=== PATIENT | female | born 1930 | race Caucasian/White ===

== ENCOUNTER 2016-08-29 10:47 | Inpatient (IN) | payer BC ==
[~2016-08-29] VITALS: Ht 162.6 cm; Wt 62.7 kg
[2016-08-29 10:48] VITALS: BP 154/87; PULSE 58; RESP 18; TEMP 97.3; O2SAT 99
--- NOTE | 2016-08-29 10:50 | NUR ---
Pt bib BLS placed in room 1 for eval of left hip swelling s/p "Leg gave out" and fall to floor. MD Peña at bedside.
--- NOTE | 2016-08-29 11:10 | NUR ---
Pt off the unit for CT
[2016-08-29] MEDS ORDERED: ONDANSETRON HCL 4 MG/2 ML VIAL IVP ONE (11:15)
[2016-08-29] MEDS ORDERED: MORPHINE 4 MG/ML INJ. SYRINGE IVP ONE (11:15)
[2016-08-29] MEDS ORDERED: ASPIRIN 81 MG TAB.CHEW PO ONE (11:15)
[2016-08-29 12:01] LABS: BASOPHILS # (AUTO) 0.1 K/uL (0.0-0.2); BASOPHILS % (AUTO) 0.6 % (0.0-2.0); EOSINOPHILS % (AUTO) 0.2 % (0.0-4.0); HEMATOCRIT 41.1 % (36-48); HEMOGLOBIN 14.1 g/dL (12.0-16.0); LYMPHOCYTES # (AUTO) 1.1 K/uL (1.0-5.5); LYMPHOCYTES % (AUTO) 7.7 % (20.5-51.5); MEAN CORPUSCULAR HEMOGLOBIN 35 pg (27-31); MEAN CORPUSCULAR HGB CONC 34 % (32-36); MEAN CORPUSCULAR VOLUME 100 fL (79.0-98.0); MONOCYTES # (AUTO) 1.3 K/uL (0.0-1.0); MONOCYTES % (AUTO) 9.3 % (1.7-9.3); NEUTROPHILS # (AUTO) 11.8 K/uL (1.8-7.7); NEUTROPHILS % (AUTO) 82.2 % (40.0-70.0); PLATELET COUNT (AUTO) 153 K/uL (130-430); RED CELL DISTRIBUTION WIDTH 12.3 % (9.0-15.0); WHITE BLOOD COUNT (AUTO) 14.3 K/uL (4.8-10.8)
[2016-08-29 12:09] LABS: ANION GAP 3 (5-15); CALCIUM 9.2 mg/dL (8.4-11.0); CHLORIDE 103 mmol/L (98-107); CREATININE 1.27 mg/dL (0.55-1.30); GLUCOSE 124 mg/dL (70-99); POTASSIUM 4.3 mmol/L (3.5-5.1); SODIUM SERUM 139 mmol/L (136-145); UREA NITROGEN, BLOOD 33 mg/dL (8-21)
[2016-08-29 12:12] LABS: INR 1.1 (0.8-1.2); PROTHROMBIN TIME 11.9 SECS (9.5-12.5)
[2016-08-29 12:13] LABS: ALANINE AMINOTRANSFERASE 26 U/L (12-78); ASPARTATE AMINOTRANSFERASE 32 U/L (10-37); CREATINE KINASE, TOTAL 242 U/L (26-192); PHOSPHORUS 3.5 mg/dL (2.7-4.5); TOTAL BILIRUBIN 1.1 mg/dL (0.0-1.0); TOTAL PROTEIN, SERUM 7.2 g/dL (6.4-8.3)
[2016-08-29 12:43] LABS: CKMB RELATIVE INDEX 5.3 (0.0-2.9); CREATINE KINASE MB 12.8 ng/mL (0-3.6)
--- NOTE | 2016-08-29 13:44 | NUR ---
ORTHO DR DICK ACCEPTED THE [facility] PATIENT.
--- NOTE | 2016-08-29 14:16 | NUR ---
ADMIT NOTE Received pt from ER to the floor with a diagnosis of hip fracture. Admission process initiated. patient oriented to pain management, safety and call light-teach back done.
--- NOTE | 2016-08-29 14:20 | NUR ---
Patient will be admitted to care of . Admitted to Telemetry unit. Will go to room 104B. Summary report printed. Report given to Admission RN.
[2016-08-29 14:39] VITALS: BP 135/65; PULSE 81; RESP 20; TEMP 98.6; O2SAT 96
[2016-08-29] MEDS ORDERED: DIGO125T79 PO (15:37)
[2016-08-29] MEDS ORDERED: POTA8TAB4 PO (15:37)
[2016-08-29] MEDS ORDERED: FURO-150 PO (15:37)
[2016-08-29] MEDS: MORPHINE 2 MG/ML INJ. SYRINGE IVP PRN ×3 (15:38→23:58)
[2016-08-29] MEDS: 0.45% NACL 1,000 ML IV SCH (15:40)
--- NOTE | 2016-08-29 16:07 | NUR ---
Cardio Consult: for Dr. Snow, regarding preop clearance, ordered by Dr. Villavicencio, spoke with Rosie.
--- NOTE | 2016-08-29 16:16 | NUR ---
Page request per shipping and receiving clerk for Doctor Joyce for time of surgery evaluation. 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
--- NOTE | 2016-08-29 16:35 | NUR ---
Doctor Maye and nurse rounds to bedside. Son aware he will likely go tonight and not have a consult visit.
--- NOTE | 2016-08-29 16:58 | NUR ---
Ortho Consult: for Dr. Cook will not be taking case.
--- NOTE | 2016-08-29 17:05 | NUR ---
[employer] to call Doctor Maye for new choice of orthopaedic MD as Doctor Joyce no longer taking cases.
--- NOTE | 2016-08-29 17:07 | NUR ---
Paged Dr. Villavicencio to request order for new ortho consult.
--- NOTE | 2016-08-29 17:22 | NUR ---
DOCTOR MEGAN SAYS CONSULT JENNIFER IF NOT AVAILABLE CONSULT DOCTOR WATKINS.
--- NOTE | 2016-08-29 17:36 | NUR ---
Dr. Garcia will not take consult.
--- NOTE | 2016-08-29 17:44 | NUR ---
Dr. Xie not propulsion systems engineer, consult given to Dr. Mcmullen. Spoke with
--- NOTE | 2016-08-29 18:03 | NUR ---
DOCTOR JENNIFER AND DOCTOR WATKINS NOT ABLE TO CONSULT. DOCTOR FIORDALIZA AVAILABLE. CONSULT PLACED.
[2016-08-29 18:18] VITALS: BP 125/76; PULSE 65; RESP 19; TEMP 97.3; O2SAT 95
[2016-08-29 18:25] LABS: CKMB RELATIVE INDEX 3.8 (0.0-2.9); CREATINE KINASE MB 12.7 ng/mL (0-3.6)
--- NOTE | 2016-08-29 18:37 | NUR ---
PATIENT NOTIFIED DOCTOR FIORDALIZA CALLED FOR CONSULTATION RE: EVAL FOR ORTHO SURGERY.
--- NOTE | 2016-08-29 19:45 | NUR ---
Start of shift notes Received pt.in bed, pt.alert, awake, oriented x4. Complained of 7/10 L hip pain, will give pain med. Breathing even and non labored. Call light placed within reach. Made comfortable in bed.
--- NOTE | 2016-08-29 19:45 | NUR ---
Handoff rounds . Assist to bedpan. Patient pending consults with Doctor Mcmullen and Doctor Snow. Encouraged to call or have am nurse call again.
--- NOTE | 2016-08-29 19:55 | NUR ---
Pt.complained of L hip pain, pain med.given. Made comfortable in bed.
[2016-08-29 20:00] VITALS: BP 142/69; PULSE 68; RESP 18; TEMP 98.9; O2SAT 100
--- NOTE | 2016-08-29 23:58 | NUR ---
Nurse rounds Pt.complained of L hip pain, pain med.given.
[2016-08-30 00:03] VITALS: BP 132/62; PULSE 70; RESP 16; TEMP 99.9; O2SAT 96
[2016-08-30 04:00] VITALS: BP 146/65; PULSE 69; RESP 16; TEMP 97.2; O2SAT 94
[2016-08-30] MEDS: MORPHINE 2 MG/ML INJ. SYRINGE IVP PRN ×5 (04:10→21:28)
--- NOTE | 2016-08-30 04:10 | NUR ---
Nurse rounds Pt.complained of pain, pain med.given.
--- NOTE | 2016-08-30 06:00 | NUR ---
End of shift notes Pt.seemed comfortable in bed this time, pain med.given earlier.
[2016-08-30 06:59] LABS: BASOPHILS % (AUTO) 0.5 % (0.0-2.0); EOSINOPHILS # (AUTO) 0.2 K/uL (0.0-0.4); EOSINOPHILS % (AUTO) 2.1 % (0.0-4.0); HEMATOCRIT 35.1 % (36-48); HEMOGLOBIN 12.4 g/dL (12.0-16.0); LYMPHOCYTES # (AUTO) 1.5 K/uL (1.0-5.5); LYMPHOCYTES % (AUTO) 18.9 % (20.5-51.5); MEAN CORPUSCULAR HEMOGLOBIN 35 pg (27-31); MEAN CORPUSCULAR HGB CONC 35 % (32-36); MEAN CORPUSCULAR VOLUME 100 fL (79.0-98.0); MONOCYTES # (AUTO) 1.4 K/uL (0.0-1.0); MONOCYTES % (AUTO) 17.2 % (1.7-9.3); NEUTROPHILS % (AUTO) 61.3 % (40.0-70.0); PLATELET COUNT (AUTO) 135 K/uL (130-430); RED BLOOD CELL COUNT(AUTO) 3.52 MIL/uL (4.2-6.2); RED CELL DISTRIBUTION WIDTH 12.6 % (9.0-15.0); WHITE BLOOD COUNT (AUTO) 8.1 K/uL (4.8-10.8)
[2016-08-30 08:00] VITALS: BP 141/69; PULSE 82; RESP 16; TEMP 98.6; O2SAT 97
--- NOTE | 2016-08-30 08:00 | NUR ---
NOTE PT SITTING UP IN BED AND EATING HER BREAKFAST. NO SOB/RESP DISTRESS NOTED. PT WAS JUST GIVEN PAIN MEDICATION IVP FOR PAIN OF 10/10 ON PAIN SCALE OF 0/10. IVF'S INFUSING THROUGH LEFT FOREARM IV SITE AT THIS TIME. CALL LIGHT WITHIN REACH.
[2016-08-30] MEDS: POTASSIUM CHLORIDE 8 MEQ TABLET.SA PO SCH (08:10)
[2016-08-30] MEDS: FUROSEMIDE 20 MG TABLET PO SCH (08:11)
[2016-08-30] MEDS: DIGOXIN 0.125 MG TABLET PO SCH (08:11)
[2016-08-30] MEDS: ENOXAPARIN SODIUM 40 MG/0.4 ML SYRINGE SUBCUT SCH (08:25)
[2016-08-30 08:38] LABS: ANION GAP 6 (5-15); CALCIUM 8.7 mg/dL (8.4-11.0); CHLORIDE 102 mmol/L (98-107); CREATININE 1.03 mg/dL (0.55-1.30); GLUCOSE 112 mg/dL (70-99); POTASSIUM 4.2 mmol/L (3.5-5.1); SODIUM SERUM 139 mmol/L (136-145); UREA NITROGEN, BLOOD 22 mg/dL (8-21)
[2016-08-30 09:05] LABS: ALANINE AMINOTRANSFERASE 199 U/L (12-78); ALBUMIN 3.5 g/dL (3.4-4.8); ASPARTATE AMINOTRANSFERASE 232 U/L (10-37); TOTAL BILIRUBIN 2.3 mg/dL (0.0-1.0); TOTAL PROTEIN, SERUM 6.6 g/dL (6.4-8.3)
--- NOTE | 2016-08-30 09:31 | NUR ---
Nutrition Update Will Scale 14 noted. Pt admitted for hip fracture. Diet: cardiac BMI: 20.6 kg/m2 RD to follow per nutrition care standards.
--- NOTE | 2016-08-30 10:00 | NUR ---
NOTE DR PASTOR WAS ON THE FLOOR AT 0940AM. ORDERS WRITTEN AND ORDER FOR ARMAS CATHETER GIVEN AND CARRIED OUT AT THIS TIME. ARMAS PLACEMENT GOT 600CC STRAIGHT AWAY. PT RESTING IN BED AT THIS TIME. CALL LIGHT WITHIN REACH.
--- NOTE | 2016-08-30 10:41 | NUR ---
CONSULT ORTHO F/U SPOKE TO GEE WATKINS'S OFFICE HE WILL NOT TAKE CONSULT S/W TO STEPHENIE ETIENNE'S OFFICE HE WILL NOT TAKE CONSULT
--- NOTE | 2016-08-30 11:00 | NUR ---
NOTE DR MAR CAME TO FLOOR TO ASSESS PT AND WRITE ORDERS. MD WAS NOTIFIED THAT DR DICK, DR WATKINS, DR MANCERA AND DR RODRIGUEZ ARE UNABLE TO TAKE THE ORTHOPEDIC CASE. ORDER FOR DR ETIENNE TO BE CONSULTED WAS GIVEN AND CALL WAS PLACED. WAITING FOR CALL BACK. PT'S SON AALIYAH AT BEDSIDE AT THIS TIME WELL. QUESTIONS/CONCERNS WERE ANSWERED AT THIS TIME. CALL LIGHT WITHIN REACH.
[2016-08-30 12:00] VITALS: BP 121/61; PULSE 74; RESP 18; TEMP 96.8; O2SAT 96
[2016-08-30] MEDS: 0.45% NACL 1,000 ML IV SCH (12:25)
--- NOTE | 2016-08-30 12:56 | NUR ---
WILL SCALE EVALUATION: Patient evaluated for a low Will score of 14. Patient was awake, alert, oriented and received in a Isaac bed with an Atmos-Air 9000 mattress. Patient is able to turn in bed independently. Skin is fair. Patient had recent Left Intratrochanteric Hip Fracture, and may undergo surgery. Recommend encourage and assist patient as needed with repositioning side to side only every 2 hours with pillow support, and off-load pressure areas with pillows for pressure re-distribution. Elevate, off-load and float bilateral heels with pillows. Use moisture barrier cream on buttocks and other moisture susceptible areas QID and as needed for soiling. Perform skin care and monitor skin integrity Q shift.
--- NOTE | 2016-08-30 13:29 | NUR ---
Dr Benson Call was received from Dr Benson inquiring if Dr Cook has returned our page. Informed Dr Benson that he has not called back. Dr Benson stated that he will call Dr Cook himself. Will endorse to charge nurse.
--- NOTE | 2016-08-30 14:00 | NUR ---
NOTE DR DICK CALLED AT 1515, WILL BE COMING IN TO SEE PT AND ORDERS FOR DIET AND NPO AFTER MIDNIGHT GIVEN AT THIS TIME. PT RESTING IN BED. PAIN TOLERABLE AT THIS TIME. PT DROWSY, BUT EASILY AROUSABLE AT THIS TIME. CALL LIGHT WITHIN REACH.
[2016-08-30 15:05] VITALS: BP 122/57; PULSE 74; RESP 19; TEMP 97.3; O2SAT 93
--- NOTE | 2016-08-30 16:45 | NUR ---
NOTE PT IN BED RESTING. PAIN TOLERABLE AND NO NEEDS NOTED AT THIS TIME. CALL LIGHT WITHIN REACH. IVF'S INFUSING WELL AT THIS TIME.
[2016-08-30 17:56] LABS: CKMB RELATIVE INDEX 1.1 (0.0-2.9); CREATINE KINASE MB 6.3 ng/mL (0-3.6)
--- NOTE | 2016-08-30 18:15 | NUR ---
NOTE DR DICK CAME TO FLOOR AT 1725. ASSESSMENT OF PT AND PT'S X-RAYS WAS COMPLETED. PT SPOKE TO PT AND SURGERY IS SCHEDULED TENTATIVELY FOR 11.30AM TOMORROW. PT WAS ASSISTED IN SITTING UP IN BED AND EATING HER DINNER. IVF'S INFUSING WELL THROUGH LEFT FOREARM IV SITE AT THIS TIME. NO SOB/RESP DISTRESS OR PAIN/DISCOMFORT WAS NOTED AT THIS TIME. PT WAS MAINTAINED WITH SAFETY PRECAUTIONS ALL SHIFT. PT WAS CHECKED ON Q1' AND PRN FOR NEEDS AND CARE. ARMAS CATHETER INTACT AND DRAINING WELL AT THIS TIME. CALL LIGHT WITHIN REACH.
--- NOTE | 2016-08-30 19:50 | NUR ---
PM ASSESSMENT PT. A/OX4, VITAL SIGNS STABLE, NO DISTRESS NOTED, DENIES PAIN AT THIS TIME, NOTED WITH ARMAS CATHETER IN PLACE, UPDATED WITH PLAN OF CARE, ENCOURAGED PT. TO USE CALL LIGHT FOR ASSISTANCE, BED IN LOWEST POSITION, SIDE RAILS UP X3, CALL LIGHT WITHIN REACH, WILL CONTINUE TO MONITOR.
[2016-08-30 20:00] VITALS: BP 135/72; PULSE 82; RESP 18; TEMP 98; O2SAT 96
--- NOTE | 2016-08-30 21:28 | NUR ---
PAIN PT. C/O PAIN TO LEFT HIP RATED 6/10 ACHING PAIN, MORPHINE 2 MG IVP GIVEN ORDERED. BED BATH DONE, NEW LINEN AND NEW GOWN APPLIED.
--- NOTE | 2016-08-30 23:30 | NUR ---
RN ROUNDS PT. RESTING QUIETLY, VITAL SIGNS STABLE, NO DISTRESS NOTED, DENIES PAIN, CALL LIGHT WITHIN REACH, WILL CONTINUE TO MONITOR.
[2016-08-31] VITALS (7 sets, daily range): BP systolic 132–157; BP diastolic 61–86; PULSE 73–106; RESP 16–18; TEMP 96.5–98.1; O2SAT 95–97
--- NOTE | 2016-08-31 01:30 | NUR ---
RN ROUNDS PT. RESTING QUIETLY, VITAL SIGNS STABLE, NO DISTRESS NOTED, DENIES PAIN, CALL LIGHT WITHIN REACH, WILL CONTINUE TO MONITOR.
--- NOTE | 2016-08-31 03:20 | NUR ---
RN ROUNDS PT. RESTING QUIETLY, VITAL SIGNS STABLE, NO DISTRESS NOTED, DENIES PAIN, CALL LIGHT WITHIN REACH, WILL CONTINUE TO MONITOR.
[2016-08-31] MEDS: MORPHINE 2 MG/ML INJ. SYRINGE IVP PRN ×4 (03:59→22:20)
--- NOTE | 2016-08-31 05:20 | NUR ---
RN ROUNDS PT. RESTING QUIETLY, VITAL SIGNS STABLE, NO DISTRESS NOTED, DENIES PAIN, CALL LIGHT WITHIN REACH, WILL CONTINUE TO MONITOR.
[2016-08-31] MEDS: 0.45% NACL 1,000 ML IV SCH (05:35)
[2016-08-31 06:20] LABS: BILIRUBIN,URINE NEGATIVE (NEGATIVE); BLOOD, URINE 3+ (NEGATIVE); CLARITY/URINE CLEAR (CLEAR); COLOR,URINE YELLOW (YELLOW); GLUCOSE,URINE NEGATIVE (NEGATIVE); KETONES,URINE NEGATIVE (NEGATIVE); LEUKOCYTE ESTERASE ,URINE TRACE (NEGATIVE); NITRITE, URINE NEGATIVE (NEGATIVE); PROTEIN URINE NEGATIVE (NEGATIVE)
[2016-08-31 06:43] LABS: RBC,URINE >100 /HPF (0-3)
[2016-08-31 06:44] LABS: BACTERIA,URINE FEW /HPF (None Seen); MUCUS,URINE None Seen /LPF (None Seen); WBC,URINE 0-3 /HPF (0-3)
--- NOTE | 2016-08-31 06:50 | NUR ---
PAIN/CLOSING NOTES PT. C/O LEFT HIP PAIN RATED "6/10 ACHING PAIN", MORPHINE 2MG IVP GIVEN ORDERED. VITAL SIGNS STABLE, NO DISTRESS NOTED, IV ACCESS PATENT AND BENIGN, ARMAS CATHETER DRAINING WELL TO GRAVITY.
[2016-08-31 07:25] LABS: ANION GAP 3 (5-15); CALCIUM 8.4 mg/dL (8.4-11.0); CHLORIDE 98 mmol/L (98-107); CREATININE 0.94 mg/dL (0.55-1.30); GLUCOSE 118 mg/dL (70-99); POTASSIUM 3.9 mmol/L (3.5-5.1); SODIUM SERUM 134 mmol/L (136-145); UREA NITROGEN, BLOOD 17 mg/dL (8-21)
[2016-08-31 07:40] LABS: BASOPHILS % (AUTO) 0.3 % (0.0-2.0); EOSINOPHILS # (AUTO) 0.1 K/uL (0.0-0.4); EOSINOPHILS % (AUTO) 1.2 % (0.0-4.0); HEMATOCRIT 36.4 % (36-48); HEMOGLOBIN 12.6 g/dL (12.0-16.0); LYMPHOCYTES # (AUTO) 1.8 K/uL (1.0-5.5); LYMPHOCYTES % (AUTO) 18.8 % (20.5-51.5); MEAN CORPUSCULAR HEMOGLOBIN 35 pg (27-31); MEAN CORPUSCULAR HGB CONC 35 % (32-36); MEAN CORPUSCULAR VOLUME 100 fL (79.0-98.0); MONOCYTES # (AUTO) 1.6 K/uL (0.0-1.0); MONOCYTES % (AUTO) 16.7 % (1.7-9.3); NEUTROPHILS # (AUTO) 6.1 K/uL (1.8-7.7); PLATELET COUNT (AUTO) 138 K/uL (130-430); RED BLOOD CELL COUNT(AUTO) 3.64 MIL/uL (4.2-6.2); RED CELL DISTRIBUTION WIDTH 12.3 % (9.0-15.0); WHITE BLOOD COUNT (AUTO) 9.6 K/uL (4.8-10.8)
--- NOTE | 2016-08-31 08:00 | NUR ---
NOTE PT RESTING IN BED. IVF'S INFUSING THROUGH LEFT FOREARM IV SITE AT THIS TIME. NO SOB/RESP DISTRESS OR PAIN/DISCOMFORT NOTED AT THIS TIME. PT'S ARMAS CATHETER INTACT AND DRAINING WELL AT THIS TIME. CALL LIGHT WITHIN REACH. PT'S SON (AALIYAH) AT BEDSIDE AT THIS TIME.
[2016-08-31] MEDS: POTASSIUM CHLORIDE 8 MEQ TABLET.SA PO SCH (08:57)
[2016-08-31] MEDS: DIGOXIN 0.125 MG TABLET PO SCH (08:57)
[2016-08-31] MEDS: FUROSEMIDE 20 MG TABLET PO SCH (08:57)
[2016-08-31] MEDS: ENOXAPARIN SODIUM 40 MG/0.4 ML SYRINGE SUBCUT SCH (08:58)
--- NOTE | 2016-08-31 10:30 | NUR ---
NOTE DR WADDELL (ANESTHESIA) CAME TO SEE PT AND ANSWER QUESTIONS/CONCERNS ABOUT SURGERY ANESTHESIA. CONSENT WAS SIGNED AT THIS TIME. DR GARCIA CAME TO SEE PT AT 1020AM. ORDERS WRITTEN AND CARRIED OUT AT THIS TIME. PT RESTING IN BED, NO NEEDS NOTED. CALL LIGHT WITHIN REACH.
[2016-08-31] MEDS: PANTOPRAZOLE SODIUM 40 MG/VIAL (PROTONIX) IVP SCH (10:49)
--- NOTE | 2016-08-31 11:00 | NUR ---
NOTE PT OFF THE FLOOR VIA BED TO OR AT THIS TIME. PT'S SON FOLLOWED PT OFF THE FLOOR TO OR AND THEN OR WAITING ROOM. IVF'S WERE SALINE LOCKED AT THIS TIME.
[2016-08-31] MEDS ORDERED: ROCURONIUM BROMIDE 10 MG/ML (ZEMURON) IV ONE (11:30)
[2016-08-31] MEDS ORDERED: KETAMINE HCL 500 MG/10 ML VIAL IVP ONE (11:30)
[2016-08-31] MEDS ORDERED: CEFAZOLIN 2 GM IVPB PREMIX 50 ML IV ONE (11:30)
[2016-08-31] MEDS ORDERED: PROPOFOL 200MG/ 20ML VIAL (DIPRIVAN) IV ONE (11:30)
[2016-08-31] MEDS ORDERED: fentaNYL CITRATE 250 MCG/5 ML AMP IV ONE (11:30)
[2016-08-31] MEDS ORDERED: MIDAZOLAM HCL 5 MG/5 ML VIAL IVP ONE (11:30)
[2016-08-31] MEDS ORDERED: NS 1000 ML BAG IV ONE (11:30)
[2016-08-31] MEDS ORDERED: SEVOFLURANE 15 MIN GAS INH ONE (11:30)
[2016-08-31] MEDS ORDERED: ONDANSETRON HCL 4 MG/2 ML VIAL IVP ONE (11:30)
[2016-08-31] MEDS ORDERED: DEXAMETHASONE SOD PHOSPHATE 4 MG/ML VIAL IVP ONE (11:30)
[2016-08-31] MEDS ORDERED: KETOROLAC TROMETHAMINE 15 MG VIAL IVP ONE (11:30)
[2016-08-31] MEDS ORDERED: LR 1,000 ML IV SCH (11:44)
[2016-08-31] MEDS ORDERED: HYDROmorphone 2 MG/ML VIAL IVP PRN ×2 (11:45)
[2016-08-31] MEDS ORDERED: HYDROmorphone 1 MG INJ. 1 MG/ML AMPUL IVP PRN (11:45)
[2016-08-31] MEDS ORDERED: MEPERIDINE HCL/PF 25 MG/ML DISP.SYRIN IVP PRN (11:45)
[2016-08-31] MEDS ORDERED: POLYMYXIN 500,000/BACIT.10,000 UNITS in NS IRR 1 L IR ONE (11:48)
[2016-08-31] MEDS ORDERED: DIPHENHYDRAMINE HCL 25 MG CAPSULE PO PRN (14:30)
[2016-08-31] MEDS ORDERED: ONDANSETRON HCL 4 MG/2 ML VIAL IVP PRN (14:30)
[2016-08-31] MEDS ORDERED: SENNOSIDES 8.6 MG TABLET PO PRN (14:30)
[2016-08-31] MEDS ORDERED: ACETAMINOPHEN 325 MG TABLET PO PRN (14:30)
[2016-08-31] MEDS ORDERED: OXYCODONE/ACETAMINOPHEN 5-325 TABLET PO PRN (14:30)
[2016-08-31 15:29] LABS: BASOPHILS # (AUTO) 0.1 K/uL (0.0-0.2); BASOPHILS % (AUTO) 0.5 % (0.0-2.0); EOSINOPHILS # (AUTO) 0.1 K/uL (0.0-0.4); EOSINOPHILS % (AUTO) 0.5 % (0.0-4.0); HEMATOCRIT 35.6 % (36-48); HEMOGLOBIN 12.6 g/dL (12.0-16.0); LYMPHOCYTES # (AUTO) 0.8 K/uL (1.0-5.5); LYMPHOCYTES % (AUTO) 6.6 % (20.5-51.5); MEAN CORPUSCULAR HEMOGLOBIN 35 pg (27-31); MEAN CORPUSCULAR HGB CONC 35 % (32-36); MEAN CORPUSCULAR VOLUME 100 fL (79.0-98.0); MONOCYTES # (AUTO) 0.8 K/uL (0.0-1.0); MONOCYTES % (AUTO) 6.4 % (1.7-9.3); NEUTROPHILS # (AUTO) 10.2 K/uL (1.8-7.7); PLATELET COUNT (AUTO) 128 K/uL (130-430); RED BLOOD CELL COUNT(AUTO) 3.58 MIL/uL (4.2-6.2); RED CELL DISTRIBUTION WIDTH 12.3 % (9.0-15.0); WHITE BLOOD COUNT (AUTO) 12.1 K/uL (4.8-10.8)
[2016-08-31 15:39] LABS: ANION GAP 4 (5-15); CHLORIDE 97 mmol/L (98-107); CREATININE 1.13 mg/dL (0.55-1.30); GLUCOSE 129 mg/dL (70-99); POTASSIUM 4.1 mmol/L (3.5-5.1); SODIUM SERUM 131 mmol/L (136-145); UREA NITROGEN, BLOOD 17 mg/dL (8-21)
--- NOTE | 2016-08-31 16:00 | NUR ---
NOTE PT CAME BACK TO FLOOR. PT AAOX4. NO PAIN/DISCOMFORT NOTED AT THIS TIME. LEFT HIP DRESSING CDI AT THIS TIME WITH ICE PACKS. NEUROS IN LEFT LEG WNL. IVF'S IN RIGHT FOREARM INTACT AND INFUSING IVF'S. PT'S SON AND DAUGHTER IN LAW BY BEDSIDE AT THIS TIME. PT NOW RESTING IN BED. CALL LIGHT WITHIN REACH.
[2016-08-31] MEDS: LR 1,000 ML IV SCH (16:46)
--- NOTE | 2016-08-31 16:50 | NUR ---
Faxed DC Planning order for DME to Cari at [facility] [phone]. Filed fax confirmation in binder.
[2016-08-31] MEDS: CEFAZOLIN 1 GM IVPB PREMIX 50 ML IV SCH ×2 (17:30→22:19)
--- NOTE | 2016-08-31 18:00 | NUR ---
NOTE PT'S FAMILY GONE FOR THE DAY AT 1800. PT ASLEEP AT THIS TIME. LEFT HIP DRESSING CDI AT THIS TIME. PT HAS O2 AT 2L/NC FOR COMFORT AT THIS TIME. NEUROS IN LEFT LEG WNL. NO SOB/RESP DISTRESS NOTED. IVF'S INFUSING WELL THROUGH RIGHT FOREARM IV SITE. CALL LIGHT WITHIN REACH. PT HAD SOME ICE CHIPS AND SIPS OF COLD WATER.
--- NOTE | 2016-08-31 19:42 | NUR ---
PM ASSESSMENT PT. A/OX4, VITAL SIGNS STABLE, NO DISTRESS NOTED, DENIES PAIN AT THIS TIME, NOTED WITH ARMAS CATHETER DRAINING WELL TO GRAVITY, UPDATED WITH PLAN OF CARE, ENCOURAGED PT. TO USE CALL LIGHT FOR ASSISTANCE, CALL LIGHT WITHIN REACH, WILL CONTINUE TO MONITOR.
--- NOTE | 2016-08-31 20:00 | NUR ---
NEUROVASCULAR CHECKS PT. ABLE TO WIGGLE TOES, PT. ABLE TO FLEX AND EXTEND FEET BILATERALLY, PEDAL PULSES PRESENT BILATERALLY, NO NEURO DEFICITS PRESENT.
--- NOTE | 2016-08-31 21:14 | NUR ---
INCENTIVE SPIROMETER ENCOURAGED USE OF INCENTIVE SPIROMETER 10X/HR WHILE AWAKE, PT. ABLE TO DEMONSTRATE PROPER USE UP TO 1500.
--- NOTE | 2016-08-31 22:20 | NUR ---
PAIN PT. C/O PAIN RATED "6/10 ACHING PAIN TO LEFT HIP", MORPHINE 2MG IVP GIVEN ORDERED. VITAL SIGNS STABLE, NO DISTRESS NOTED, WILL CONTINUE TO MONITOR.
--- NOTE | 2016-08-31 22:50 | NUR ---
RN ROUNDS PT. DENIES PAIN AT THIS TIME, VITAL SIGNS STABLE, NO DISTRESS NOTED, DENIES PAIN, CALL LIGHT WITHIN REACH, WILL CONTINUE TO MONITOR.
--- NOTE | 2016-09-01 | NUR ---
NEUROVASCULAR CHECKS PT. ABLE TO WIGGLE TOES, PT. ABLE TO FLEX AND EXTEND FEET BILATERALLY, PEDAL PULSES PRESENT BILATERALLY, NO NEURO DEFICITS PRESENT.
--- NOTE | 2016-09-01 00:25 | NUR ---
RN ROUNDS PT. DENIES PAIN AT THIS TIME, VITAL SIGNS STABLE, NO DISTRESS NOTED, DENIES PAIN, REPOSITIONED WITH PILLOW SUPPORT, CALL LIGHT WITHIN REACH, WILL CONTINUE TO MONITOR.
[2016-09-01 00:35] VITALS: BP 104/68; PULSE 87; RESP 18; TEMP 98; O2SAT 98
[2016-09-01] MEDS: MORPHINE 2 MG/ML INJ. SYRINGE IVP PRN ×5 (01:36→21:30)
[2016-09-01] MEDS: 0.45% NACL 1,000 ML IV SCH ×2 (01:55→21:29)
[2016-09-01 03:29] VITALS: BP 110/70; PULSE 84; RESP 18; TEMP 98.6; O2SAT 98
[2016-09-01] MEDS: LR 1,000 ML IV SCH ×3 (03:46→21:29)
--- NOTE | 2016-09-01 04:00 | NUR ---
NEUROVASCULAR CHECKS PT. ABLE TO WIGGLE TOES, PT. ABLE TO FLEX AND EXTEND FEET BILATERALLY, PEDAL PULSES PRESENT BILATERALLY, NO NEURO DEFICITS PRESENT.
--- NOTE | 2016-09-01 06:18 | NUR ---
CLOSING NOTES PT. DENIES PAIN AT THIS TIME, VITAL SIGNS STABLE, NO DISTRESS NOTED, ARMAS IN PLACE, PILLOW IN PLACE BETWEEN LEGS, BILATERAL SCDS IN PLACE, CALL LIGHT WITHIN REACH, ALL ANTICIPATED NEEDS MET.
[2016-09-01 07:13] LABS: BASOPHILS % (AUTO) 0.1 % (0.0-2.0); EOSINOPHILS % (AUTO) 0.1 % (0.0-4.0); HEMOGLOBIN 11.2 g/dL (12.0-16.0); RED CELL DISTRIBUTION WIDTH 12.1 % (9.0-15.0)
[2016-09-01 07:19] LABS: HEMATOCRIT 32.3 % (36-48); LYMPHOCYTES # (AUTO) 0.9 K/uL (1.0-5.5); LYMPHOCYTES % (AUTO) 8.2 % (20.5-51.5); MEAN CORPUSCULAR HEMOGLOBIN 35 pg (27-31); MEAN CORPUSCULAR HGB CONC 35 % (32-36); MEAN CORPUSCULAR VOLUME 100 fL (79.0-98.0); MONOCYTES # (AUTO) 1.5 K/uL (0.0-1.0); MONOCYTES % (AUTO) 12.9 % (1.7-9.3); NEUTROPHILS % (AUTO) 78.7 % (40.0-70.0); PLATELET COUNT (AUTO) 128 K/uL (130-430); RED BLOOD CELL COUNT(AUTO) 3.22 MIL/uL (4.2-6.2); WHITE BLOOD COUNT (AUTO) 11.4 K/uL (4.8-10.8)
[2016-09-01 07:35] LABS: ANION GAP 4 (5-15); CALCIUM 8.3 mg/dL (8.4-11.0); CHLORIDE 101 mmol/L (98-107); CREATINE KINASE, TOTAL 287 U/L (26-192); CREATININE 1.04 mg/dL (0.55-1.30); GLUCOSE 127 mg/dL (70-99); POTASSIUM 4.4 mmol/L (3.5-5.1); SODIUM SERUM 135 mmol/L (136-145); UREA NITROGEN, BLOOD 22 mg/dL (8-21)
--- NOTE | 2016-09-01 07:50 | NUR ---
Initial Note Received pt in bed, no s/s of distress or sob noted, pt has no c/o pain at this time, pt in stable condition, aaox4, verbal. IV catheter patent, fluids running at TKO, bed at lowest position, call light within reach, will continue to monitor pt for any changes. Pt able to move toes on left foot, sensation present, capillary refill less than 3 seconds, pulse palpable, no paralysis or tingling per pt, warm to touch, dressing on left hip clean and dry. Educated pt on use of incentive spirometer, pt to use 10 times an hour while awake, pt verbalized understanding, pt at 1500ml.
[2016-09-01 08:00] VITALS: BP 114/56; PULSE 85; RESP 18; TEMP 98.6; O2SAT 95
[2016-09-01] MEDS: POTASSIUM CHLORIDE 8 MEQ TABLET.SA PO SCH (08:53)
[2016-09-01] MEDS: DIGOXIN 0.125 MG TABLET PO SCH (08:54)
[2016-09-01] MEDS: PANTOPRAZOLE SODIUM 40 MG/VIAL (PROTONIX) IVP SCH (08:54)
[2016-09-01] MEDS: FUROSEMIDE 20 MG TABLET PO SCH (08:54)
[2016-09-01] MEDS: ENOXAPARIN SODIUM 40 MG/0.4 ML SYRINGE SUBCUT SCH (08:55)
[2016-09-01 09:04] LABS: CKMB RELATIVE INDEX 1.4 (0.0-2.9); CREATINE KINASE MB 4.1 ng/mL (0-3.6)
--- NOTE | 2016-09-01 10:36 | NUR ---
Rounds Pt in bed, no s/s of distress or sob noted, pt has no c/o pain at this time, pt in stable condition, pt resting comfortably, will continue to monitor pt for any changes.
[2016-09-01 11:48] VITALS: BP 123/66; PULSE 87; RESP 17; TEMP 97.7; O2SAT 95
--- NOTE | 2016-09-01 11:50 | NUR ---
Neurovascular Check Pt able to move toes on left foot, sensation present, capillary refill less than 3 seconds, pulse palpable, no paralysis or tingling per pt, warm to touch, dressing on left hip clean and dry.
--- NOTE | 2016-09-01 16:21 | NUR ---
WILL SCALE EVALUATION: Patient evaluated for a low Will score of 16. Patient was awake, alert, oriented, and received in a [place] bed with an Atmos-Air 9000 mattress. Patient is able to turn independently. Skin is fair; Status post Left Hip ORIF surgery (incision covered by clean, dry, and intact dressing. Recommend encourage and assist patient with repositioning side to side with pillow wedge pelvic tilt every 2 hours with pillow support and off-load pressure areas with pillows for pressure re-distribution. Elevate, off-load and float bilateral heels with pillows. Use moisture barrier cream on buttocks and other moisture susceptible areas QID and as needed for soiling. Perform skin care and monitor skin integrity Q shift.
[2016-09-01 16:53] VITALS: BP 124/58; PULSE 98; RESP 17; TEMP 98.4; O2SAT 98
--- NOTE | 2016-09-01 18:33 | NUR ---
CLOSING NOTE AND NEUROVASCULAR CHECK: Patient is resting comfortably in bed. Patient states pain is tolerable at this time, 08/12. No notable signs of distress at this time. Pt able to move toes on left foot, sensation present, capillary refill less than 3 seconds, pulse palpable, no paralysis or tingling per pt, warm to touch, dressing on left hip clean and dry. Bed is in lowest position, call light within reach, and bed alarm is on. Will continue to monitor for changes in status. Awaiting change of shift report with direct care supervisor.
--- NOTE | 2016-09-01 19:06 | NUR ---
IV RE-INSERTION: IV site dressing needed changed, IV catheter partially removed. Restarted on 09-01-2016 at 1900. 20gauge in left forearm. Successful after 1 attempt. Resumed current IVF as ordered. Will observe for any signs of infiltration.
--- NOTE | 2016-09-01 19:30 | NUR ---
Initial Note Patient in bed at this time resting, respirations even and unlabored. No acute distress noted at this time. Patient states pain is tolerable at this time, wants pain medications before she goes to sleep. Patient is alert and oriented, able to make needs known. IV patent with no signs or symptoms of infiltration with fluids running at TKO, bed in lowest position. Call light in hand. Neuro check WNL on let foot. Patient is able to move toes, sensation present, capillary refill less than 3 seconds, tingling, warm to touch. Dressing on left hip, CDI. Educated patient on using incentive spirometer, able to show proper use and able to reach 1500mL. Call light in hand. Fall and safety precautions in place. Will continue to monitor.
[2016-09-01 20:00] VITALS: BP 133/62; PULSE 76; RESP 18; TEMP 97.8; O2SAT 95
--- NOTE | 2016-09-01 22:40 | NUR ---
RN ROUNDS Patient in bed at this time resting, respirations even and unlabored. Patient in no apparent pain or discomfort at this time. No acute distress noted at this time. Call light in hand. Fall and safety precautions in place. Will continue to monitor.
--- NOTE | 2016-09-01 23:39 | NUR ---
Pain Patient complained of pain. Informed patient when next Morphine 2mg was due, and patient stated that she will wait for next dose. Offered patient Percocet for pain management and repositioning, patient stated she can manage at this time, informed patient I will be in the room when next dose is due.
[2016-09-02 00:16] VITALS: BP 125/58; PULSE 83; RESP 17; TEMP 97.7; O2SAT 94
[2016-09-02] MEDS: MORPHINE 2 MG/ML INJ. SYRINGE IVP PRN ×6 (00:23→21:45)
--- NOTE | 2016-09-02 00:30 | NUR ---
Pain Administered pain medication as ordered with patient c/o severe pain. Patient tolerated well. IV site patent with no signs or symptoms of infiltration noted. Call light in hand. Fall and safety precautions in place. Will continue to monitor. Will reassess as ordered.
--- NOTE | 2016-09-02 02:10 | NUR ---
RN ROUNDS Patient in bed at this time resting, respirations even and unlabored. No acute distress noted at this time. Patient denies any pain or discomfort at this time. Call light in hand. Fall and safety precautions in place. Will continue to monitor.
[2016-09-02 03:17] VITALS: BP 124/66; PULSE 77; RESP 18; TEMP 97.6; O2SAT 94
--- NOTE | 2016-09-02 04:17 | NUR ---
RN ROUNDS Patient in bed at this time resting, respirations even and unlabored. No acute distress noted at this time. Patient in no apparent pain or discomfort at this time. Call light in hand. Fall and safety precautions in place. Will continue to monitor.
--- NOTE | 2016-09-02 06:58 | NUR ---
Closing Note Discontinued nichols catheter, catheter tip intact. Patient tolerated well. Set up patient to wash her teeth. All due meds given, all needs met. Call light in hand. Fall and safety precautions in place. Will endorse to day shift nurse.
[2016-09-02 07:03] LABS: BASOPHILS # (AUTO) 0.1 K/uL (0.0-0.2); BASOPHILS % (AUTO) 0.5 % (0.0-2.0); EOSINOPHILS # (AUTO) 0.3 K/uL (0.0-0.4); EOSINOPHILS % (AUTO) 2.5 % (0.0-4.0); HEMATOCRIT 30.4 % (36-48); HEMOGLOBIN 10.2 g/dL (12.0-16.0); LYMPHOCYTES # (AUTO) 2.3 K/uL (1.0-5.5); LYMPHOCYTES % (AUTO) 20.9 % (20.5-51.5); MEAN CORPUSCULAR HEMOGLOBIN 34 pg (27-31); MEAN CORPUSCULAR HGB CONC 34 % (32-36); MEAN CORPUSCULAR VOLUME 101 fL (79.0-98.0); MONOCYTES # (AUTO) 1.6 K/uL (0.0-1.0); MONOCYTES % (AUTO) 14.7 % (1.7-9.3); NEUTROPHILS # (AUTO) 6.6 K/uL (1.8-7.7); NEUTROPHILS % (AUTO) 61.4 % (40.0-70.0); PLATELET COUNT (AUTO) 146 K/uL (130-430); RED BLOOD CELL COUNT(AUTO) 3.02 MIL/uL (4.2-6.2); RED CELL DISTRIBUTION WIDTH 12.4 % (9.0-15.0); WHITE BLOOD COUNT (AUTO) 10.9 K/uL (4.8-10.8)
[2016-09-02 07:19] LABS: ALANINE AMINOTRANSFERASE 58 U/L (12-78); ALBUMIN 2.7 g/dL (3.4-4.8); ANION GAP 4 (5-15); ASPARTATE AMINOTRANSFERASE 41 U/L (10-37); CALCIUM 8.1 mg/dL (8.4-11.0); CHLORIDE 99 mmol/L (98-107); CREATININE 0.98 mg/dL (0.55-1.30); GLUCOSE 103 mg/dL (70-99); POTASSIUM 3.8 mmol/L (3.5-5.1); SODIUM SERUM 135 mmol/L (136-145); TOTAL BILIRUBIN 1.2 mg/dL (0.0-1.0); TOTAL PROTEIN, SERUM 6.1 g/dL (6.4-8.3); UREA NITROGEN, BLOOD 28 mg/dL (8-21)
[2016-09-02 08:00] VITALS: BP 129/71; PULSE 95; RESP 18; TEMP 98.8; O2SAT 94
--- NOTE | 2016-09-02 08:00 | NUR ---
initial notes rec patient awake alert with hob elevated.ivf infusing well on the l arm. no infiltration oted. resp easy and unlabored . no acute distress noted.dressing on the l hip intact. no bleeding noted. toes moving freely and warm to touch. no neuro deficit noted. magdalena was dc/d this am. awaiting for patient to void.bed in low position and side rails up and locked.call light withn reached and knows when to tcall for assistance. will continue too monitor patient.
[2016-09-02] MEDS: PANTOPRAZOLE SODIUM 40 MG/VIAL (PROTONIX) IVP SCH ×2 (08:10→08:11)
[2016-09-02] MEDS: FUROSEMIDE 20 MG TABLET PO SCH (08:11)
[2016-09-02] MEDS: POTASSIUM CHLORIDE 8 MEQ TABLET.SA PO SCH (08:11)
[2016-09-02] MEDS: ENOXAPARIN SODIUM 40 MG/0.4 ML SYRINGE SUBCUT SCH (08:12)
[2016-09-02] MEDS: DIGOXIN 0.125 MG TABLET PO SCH (08:12)
--- NOTE | 2016-09-02 10:00 | NUR ---
rounds up with p.t at bedside and lesvia well.son at the bedside.
[2016-09-02 11:43] VITALS: Ht 162.6 cm; Wt 62.7 kg
--- NOTE | 2016-09-02 12:00 | NUR ---
rounds sleeping at intervals, with poor appetite at this time.
[2016-09-02 12:05] VITALS: BP 133/86; PULSE 90; RESP 18; TEMP 99.6; O2SAT 95
--- NOTE | 2016-09-02 13:00 | NUR ---
rounds uses the bedpan at intervals and voiding to large amount of urine. no sob noted.
--- NOTE | 2016-09-02 14:00 | NUR ---
rounds sleeping at this time. no sob noted.
--- NOTE | 2016-09-02 16:00 | NUR ---
rounds sleeps at intervals otherwise uses the bedpan and voiding freely. no acute distress noted. no neuro deficit noted. toes moving freely and warm to touch.
[2016-09-02 16:05] VITALS: BP 136/61; PULSE 88; RESP 20; TEMP 98.5; O2SAT 94
--- NOTE | 2016-09-02 18:20 | NUR ---
closing notes pain med was given as requested for pain. no acute distress noted. call light within reached. no sob noted. bed in low position and side rails up and locked.
[2016-09-02 19:45] VITALS: BP 149/61; PULSE 82; RESP 17; TEMP 97.1; O2SAT 96
--- NOTE | 2016-09-02 19:45 | NUR ---
INITIAL NOTE PT RECEIVED AAOX4, NO S/S OF SOB OR DISTRESS NOTED. PT. DENIES PAIN AT THIS TIME, SHE STATES HER LAST DOSE OF MORPHINE WAS EFFECTIVE. LEFT HIP DRESSING DRY AND INTACT, NO ACTIVE BLEEDING NOTED. IV ACCESS TO LEFT FOREARM, NO REDNESS OR SWELLING AT THE SITE. SALINE LOCK, PT. IS TOLERATING HER DIET. SCDS ON BILATERALLY. PT. EDUCATED ON USE OF INCENTIVE SPIROMETER, RETURNS DEMONSTRATION OF 700ML. ENCOURAGED HER TO USE HOURLY TO PREVENT LUNG COMPLICATIONS FOLLOWING SURGERY, VERBALIZES UNDERSTANDING. PLAN OF CARE DISCUSSED, VERBALIZES UNDERSTANDING. WILL CONTINUE TO MONITOR FOR ANY CHANGES. SAFETY AND FALL PRECAUTIONS IN PLACE, CALL LIGHT IN REACH. ALARM ON. Addendum: 09/03/16 at 0117 by Ana Snow RN NEUROVASCULAR CHECK PERFORMED, PT. ABLE TO WIGGLE TOES, GOOD CIRCULATION, PULSES PRESENT BILATERALLY.
--- NOTE | 2016-09-02 22:05 | NUR ---
ROUNDS ASSISTED PT. TO USE BEDSIDE COMMODE, VOIDED FREELY. ASSISTED BACK TO A COMFORTABLE POSITION. NO S/S OF SOB OR DISTRESS NOTED. IV FLUIDS CONTINUE TO INFUSE WELL. NO ACTIVE BLEEDING NOTED TO LEFT HIP DRESSING. SCDS ON BILATERALLY. ENCOURAGED PT. TO USE INCENTIVE SPIROMETER HOURLY WHILE AWAKE. WILL CONTINUE TO MONITOR FOR ANY CHANGES, SAFETY AND FALL PRECAUTIONS IN PLACE. CALL LIGHT IN REACH. ALARM ON. Addendum: 09/03/16 at 8735 by Ana Snow RN assisted pt. to use *bedpan*
--- NOTE | 2016-09-03 00:02 | NUR ---
ROUNDS PT. RESTING IN BED WITH EYES CLOSED. CHEST RISE AND FALL NOTED. NO S/S OF SOB OR DISTRESS. NO FACIAL GRIMACING FOR PAIN. IV FLUIDS INFUSING WELL. WILL CONTINUE TO MONITOR. SAFETY AND FALL PRECAUTIONS IN PLACE. CALL LIGHT IN REACH.
[2016-09-03 00:27] VITALS: BP 128/69; PULSE 80; RESP 18; TEMP 98.2; O2SAT 96
--- NOTE | 2016-09-03 04:12 | NUR ---
rounds pt. resting in bed with eyes closed. chest rise and fall noted. no s/s of sob or distress. no facial grimacing indicating pain. dressing to left hip dry and intact, no active bleeding noted. pedal pulses present bilaterally, good circulation to lower extremities. will continue to monitor. safety and fall precautions in place, call light in reach.
[2016-09-03 04:17] VITALS: BP 116/64; PULSE 81; RESP 16; TEMP 98.3; O2SAT 97
[2016-09-03] MEDS: MORPHINE 2 MG/ML INJ. SYRINGE IVP PRN ×3 (04:54→12:05)
--- NOTE | 2016-09-03 06:41 | NUR ---
CLOSING NOTES PT. RESTING COMFORTABLY IN BED. ASSISTED TO USE THE BEDPAN. PT. USES OVERHEAD TRAPEZE WELL TO LIFT BODY. PAIN MEDICATION WAS GIVEN PER PT. REQUEST, STATES THAT IT WAS EFFECTIVE. PT. ABLE TO WIGGLE TOES, PEDAL PULSES AND GOOD CIRCULATION PRESENT BILATERALLY. ALL NECESSARY NEEDS WERE MET. SAFETY AND FALL PRECAUTIONS WERE MAINTAINED. WILL ENDORSE CARE TO AM NURSE. CALL LIGHT IN REACH, BED ALARM ON.
[2016-09-03 07:17] LABS: BASOPHILS % (AUTO) 0.5 % (0.0-2.0); EOSINOPHILS # (AUTO) 0.4 K/uL (0.0-0.4); EOSINOPHILS % (AUTO) 4.3 % (0.0-4.0); HEMOGLOBIN 10.3 g/dL (12.0-16.0); LYMPHOCYTES # (AUTO) 1.9 K/uL (1.0-5.5); LYMPHOCYTES % (AUTO) 19.6 % (20.5-51.5); MEAN CORPUSCULAR HEMOGLOBIN 34 pg (27-31); MEAN CORPUSCULAR HGB CONC 34 % (32-36); MEAN CORPUSCULAR VOLUME 98 fL (79.0-98.0); MONOCYTES # (AUTO) 1.6 K/uL (0.0-1.0); MONOCYTES % (AUTO) 17.3 % (1.7-9.3); NEUTROPHILS # (AUTO) 5.6 K/uL (1.8-7.7); NEUTROPHILS % (AUTO) 58.3 % (40.0-70.0); PLATELET COUNT (AUTO) 174 K/uL (130-430); RED BLOOD CELL COUNT(AUTO) 3.07 MIL/uL (4.2-6.2); RED CELL DISTRIBUTION WIDTH 12.3 % (9.0-15.0); WHITE BLOOD COUNT (AUTO) 9.5 K/uL (4.8-10.8)
[2016-09-03 07:26] LABS: ANION GAP 4 (5-15); CALCIUM 8.4 mg/dL (8.4-11.0); CHLORIDE 97 mmol/L (98-107); CREATININE 0.92 mg/dL (0.55-1.30); GLUCOSE 109 mg/dL (70-99); POTASSIUM 3.6 mmol/L (3.5-5.1); SODIUM SERUM 136 mmol/L (136-145); UREA NITROGEN, BLOOD 25 mg/dL (8-21)
--- NOTE | 2016-09-03 07:27 | NUR ---
OPENING NOTE: Patient is resting comfortably. No complaints of pain at this time, and no notable signs of distress. Patients bed is in lowest position, bed alarm is on, and call light within reach. Received report from shift supervisor film processing nurse, will continue to monitor for changes in status.
[2016-09-03 07:54] VITALS: BP 146/67; PULSE 87; RESP 14; TEMP 97.1; O2SAT 97
[2016-09-03] MEDS: ENOXAPARIN SODIUM 40 MG/0.4 ML SYRINGE SUBCUT SCH (08:53)
[2016-09-03] MEDS: PANTOPRAZOLE SODIUM 40 MG/VIAL (PROTONIX) IVP SCH (08:53)
[2016-09-03] MEDS: POTASSIUM CHLORIDE 8 MEQ TABLET.SA PO SCH (08:54)
[2016-09-03] MEDS: DIGOXIN 0.125 MG TABLET PO SCH (08:54)
[2016-09-03] MEDS: FUROSEMIDE 20 MG TABLET PO SCH (08:55)
--- NOTE | 2016-09-03 10:35 | NUR ---
CALLED [facility], GARCÍA RUSSELL RE: SNF PLACEMENT TODAY, DISCHARGED BY DR Melvin ODONNELL. SPOKE TO NICOLE
--- NOTE | 2016-09-03 10:51 | NUR ---
AFTER [facility], GARCÍA CALLED BACK, INFORMED RIYA VILLEGAS THAT PT IS GOING TO [facility], AND AMBULANCE TO USE IS [facility]
--- NOTE | 2016-09-03 10:52 | NUR ---
1000 ROUNDS Patient resting comfortably after working with Physical Therapy. Patient complains of pain at 4/10, patient given pain medication prior to therapy. The pain level is tolerable per the patient. Patient was walking with 2 wheel walker with physical therapy and sat in chair at the bedside for approximately 30 minutes. Patient utilizes trapeze for movement in bed and uses bedpan for elimination. She working well with the equipment. No other signs of distress noted. Bed is in lowest position, call light within reach, and bed alarm is on for safety. Will continue to monitor for changes in status.
--- NOTE | 2016-09-03 12:00 | NUR ---
1200 Rounds Patient is lying in her bed complaints of 6/10 pain, and nausea are stated by the patient. Pain medication of 2mg morphine administered as well as IV Zofran 4mg. Patient was up to chair and physical therapy came to work with the patient for the 2nd time today, as requested by transfer facility. There was increased pain after activity. Patient is now in bed, resting. She states that she is tired and did not sleep well last night, and has had a lot of activity this morning. Will allow patient to rest and visit with family and friends at bedside. Bed alarm is on, call light within reach, bed in lowest position. Will continue to monitor for changes in status.
[2016-09-03 12:23] VITALS: BP 124/64; PULSE 91; RESP 17; TEMP 97.6; O2SAT 98
--- NOTE | 2016-09-03 13:02 | NUR ---
CALLED [facility], GARCÍA RUSSELL, RE: [facility] TO TRANSPORT PT TO [facility] IS FULLY BOOKED TILL MIDNITE . SPOKE TO AMARJIT
--- NOTE | 2016-09-03 14:25 | NUR ---
MADE 4 TIMES FOLLOW UP CALL FOR [facility] ON ALL CM. SPOKE TO SANTHOSH OCASIO: [facility] TO USE. [facility] CANNOT ACCOMMODATE THE TRANSPORT REQUEST FOR THIS PT
[2016-09-03 14:38] VITALS: BP 125/86; PULSE 90; RESP 14; TEMP 98.3; O2SAT 96
--- NOTE | 2016-09-03 14:48 | NUR ---
CALLED [facility] RE: TRANSPORT TO TAKE PT TO [facility]. SPOKE TO MATTHEW. RUG SHAMPOOER TIME IS 1515 TO 1530
[2016-09-03 15:00] VITALS: BP 122/64; PULSE 88; RESP 17; TEMP 97.9; O2SAT 98
--- NOTE | 2016-09-03 15:00 | NUR ---
DISCHARGE DR. GUZMAN DISCHARGED THE PATIENT TO [facility], PATIENT IS AWARE. CM IS AWARE BED WAS GIVEN TO US 205[address], AND PATIENT HAD TO DO 2ND PT BEFORE LEAVING. PATIENT DID 2ND PT, REPORT WAS GIVEN TO DEVIN AT THE FACILITY. EMT WAS CALLED AND 30 MINUTE ETA WAS GIVEN. DISCHARGE PAPERWORK WAS PREPARED, EDUCATION GIVEN TO THE PATIENT, WHO VERBALIZED UNDERSTANDING. SON, AALIYAH, WAS CALLED AND INFORMED OF DISCHARGE ON ROOM NUMBER AND FACILITY LOCATION. IV AND ARM BANDS WERE REMOVED, PATIENT WAS PLACED IN ORANGE GOWN. CALL LIGHT WITHIN REACH, WILL CONTINUE TO MONITOR.
--- NOTE | 2016-09-03 15:50 | NUR ---
DISCHARGE PATIENT REPORT GIVEN TO [facility] COUNTER PERSON, AND PATIENT LEFT IN STABLE CONDITION WITH ALL BELONGINGS.
== END 2016-09-03 15:53 | DRG 482 ==
LOC: SED 10:47 → SMU 13:55 → STU 14:14 → SMU 09-03 10:28
PROVIDERS: ADMIT Internal Medicine; ATTEND Internal Medicine
PROC: 0QS704Z Reposition Left Upper Femur with Internal Fixation Device, Open Approach (ICD-10-PCS; principal; 2016-08-30)
DX: S72.142A Displaced intertrochanteric fracture of left femur, initial encounter for closed fracture (principal); D64.9 Anemia, unspecified; I48.2 Chronic atrial fibrillation; E78.5 Hyperlipidemia, unspecified; I50.9 Heart failure, unspecified; Z66 Do not resuscitate; I11.0 Hypertensive heart disease with heart failure; W01.0XXA Fall on same level from slipping, tripping and stumbling without subsequent striking against object, initial encounter; Y93.89 Activity, other specified; Y92.091 Bathroom in other non-institutional residence as the place of occurrence of the external cause; Y99.8 Other external cause status; Z82.3 Family history of stroke; Z90.49 Acquired absence of other specified parts of digestive tract; Z88.6 Allergy status to analgesic agent; Z90.710 Acquired absence of both cervix and uterus; Z98.49 Cataract extraction status, unspecified eye
CPT/HCPCS: 36415; 71010; 73510-TC; 73530-TC; 73552; 80048; 80053; 81000-TC; 82550-TC; 82553-TC; 84100-TC; 84484; 85025; 85610-TC; 85730-TC; 86886; 86900; 86901; 87081; 93005; 93306; 94010; 96374; 96375; 97110-GP; 97116-GP; 97530-GP; 99285; C1713; C9113; J0690; J1100; J1650; J1885; J2250; J2270; J2405; J2704; J3010; J7030; J7120